=== PATIENT | female | born 1945 | race Hispanic/Latino ===

== ENCOUNTER 2018-05-01 16:08 | Observation (INO) | payer MEDICARE, OTHER ==
[2018-05-01 17:42] LABS: #Basophils 0.1 thou/uL (0.0-0.2); #Eosinphils 0.2 thou/uL (0.0-0.7); #Lymphocytes 2.6 thou/uL (1.20-3.40); #Monocytes 0.7 thou/uL (0.11-0.59); #Neutrophils 7.7 thou/uL (1.40-6.50); %Basophils 0.7 % (0.0-1.0); %Eosinophils 1.4 % (0.0-10.0); %Lymphocytes 22.9 % (21.0-51.0); %Monocytes 6.3 % (0.0-10.0); %Neutrophils 68.7 % (42.0-75.0); Hemoglobin 8.1 g/dL (12.0-16.0); Mean Corpuscular HGB CONC 34.8 g/dL (32.0-36.0); Mean Corpuscular Hemoglobin 32.9 pg (27.0-31.0); Mean Corpuscular Volume 94.5 fL (78.0-98.0); Mean Platelet Volume 8.4 fL (7.4-10.4); Platelet Count 252 thou/uL (130-400); Red Blood Cell (RBC) Count 2.45 mill/uL (4.20-5.40); White Blood Cell (WBC) Count 11.3 thou/uL (4.8-10.8)
[2018-05-01 17:58] LABS: ALT (SGPT) 31 U/L (8-55); AST (SGOT) 32 U/L (5-34); Albumin 3.8 g/dL (3.4-4.8); Alkaline Phosphatase 69 U/L (40-150); Anion Gap 15 mmol/L (10-20); BUN (Urea Nitrogen) 18 mg/dL (9.8-20.1); Bilirubin, Total 0.4 mg/dL (0.2-1.2); Calc. Creatinine Clearance 0 mL/min (70-130); Calcium 9.1 mg/dL (7.8-10.44); Carbon Dioxide 19 mmol/L (23-31); Chloride 107 mmol/L (98-107); Estimated GFR-MDRD 64; Globulin 2.6 g/dL (2.4-3.5); Glucose 104 mg/dL (83-110); Potassium 4.8 mmol/L (3.5-5.1); Protein, Total 6.4 g/dL (6.0-8.3); Sodium 136 mmol/L (136-145)
[2018-05-01] MEDS ORDERED: Pantoprazole 40 MG VIAL ONE (19:21)
[2018-05-01] MEDS ORDERED: Ondansetron HCl/PF 4 MG/2 ML Vial IVP PRN (22:35)
[2018-05-01] MEDS ORDERED: Acetaminophen 325 MG TAB PO PRN (22:35)
[2018-05-01] MEDS ORDERED: Ondansetron ODT 4 MG TAB SL PRN (22:35)
[2018-05-01] MEDS ORDERED: Pantoprazole 80 MG in Sodium Chloride 0.9% 100 ML IVP SCH (22:45)
--- NOTE | 2018-05-02 00:03 | CT ---
CT ABDOMEN AND PELVIS WITH IV CONTRAST 05/01/18 HISTORY: Abdominal pain. GI bleed. FINDINGS: Lung bases are clear. Gallbladder is surgically absent. Calcification throughout the arterial structu res. Urinary bladder is unremarkable. Degenerative changes lumbar spine. Lack of oral contrast limits evaluation of the bowel. No evidence of obstruction or inflammation. IMPRESSION: No acute abnormalities are demonstrated. Status post cholecystectomy. POS: [facility]
[2018-05-02 00:16] LABS: Hemoglobin 8.6 g/dL (12.0-16.0)
[2018-05-02 01:19] VITALS: BMI 34.5
[2018-05-02 05:00] LABS: Hemoglobin 8.5 g/dL (12.0-16.0)
[2018-05-02 05:25] LABS: Anion Gap 10 mmol/L (10-20); BUN (Urea Nitrogen) 14 mg/dL (9.8-20.1); Calc. Creatinine Clearance 79 mL/min (70-130); Calcium 8.7 mg/dL (7.8-10.44); Carbon Dioxide 26 mmol/L (23-31); Chloride 107 mmol/L (98-107); Estimated GFR-MDRD 64; Glucose 106 mg/dL (83-110); Potassium 3.8 mmol/L (3.5-5.1); Sodium 139 mmol/L (136-145)
[2018-05-02] MEDS ORDERED: Diabetic Tussin 200 MG/10 ML UDCUP PO PRN (07:16)
[2018-05-02] MEDS ORDERED: Senokot 8.6 MG TAB PO PRN (07:16)
[2018-05-02] MEDS ORDERED: hydrALAZINE 20 MG/ML VIAL SLOW IVP PRN (07:16)
[2018-05-02] MEDS ORDERED: Loratadine 10 MG TAB PO PRN (07:16)
[2018-05-02] MEDS ORDERED: HYDROcodone/Acetaminophen 5/325 mg Tablet PO PRN (07:16)
[2018-05-02] MEDS ORDERED: Ondansetron ODT 4 MG TAB PO PRN (07:16)
[2018-05-02] MEDS ORDERED: Sodium Chloride 0.65% Nasal 44 ML BOT EA NARE PRN (07:16)
[2018-05-02] MEDS ORDERED: Milk Of Magnesia 30 ML UDCUP PO PRN (07:16)
[2018-05-02] MEDS ORDERED: Artificial Tears 18 DROP/0.9 ML EA EYE PRN (07:16)
[2018-05-02] MEDS ORDERED: Chloraseptic Spray 180 ml Bottle PO PRN (07:16)
[2018-05-02] MEDS ORDERED: Mag-Al 1200 mg/1200 mg/30 ML UDCUP PO PRN (07:16)
[2018-05-02] MEDS ORDERED: Loperamide HCl 2 MG CAP PO PRN (07:16)
[2018-05-02] MEDS ORDERED: Eucerin (Mineral Oil/Petrolatum,White) 30 gm Jar TOP PRN (07:16)
[2018-05-02] MEDS ORDERED: Zolpidem Tartrate 5 MG TAB PO PRN (07:16)
[2018-05-02] MEDS ORDERED: Dextrose 5% in Water 1,000 ML IV PRN (07:17)
[2018-05-02] MEDS ORDERED: HumaLOG 300 UNITS/3 ML VIAL SC PRN ×2 (07:17)
[2018-05-02] MEDS ORDERED: Dextrose 50% Abboject 50 ML SYRINGE SLOW IVP PRN (07:17)
--- NOTE | 2018-05-02 07:19 | HP ---
TIME OF EVALUATION: 8:30 p.m. PRIMARY CARE PHYSICIAN: Dr. Vaishali Huff. CODE STATUS: FULL CODE. CHIEF COMPLAINT: Black stool. HISTORY OF PRESENT ILLNESS: A 72-year-old female patient with past medical history of diabetes type 2, hyperlipidemia, high cholesterol, hypertension who came to the hospital after having worsening mimi rtness of breath for past 2 weeks, and also having black stools in the past few days, she was taking Pepto-Bismol she had the black stool because of the medication, Dr. Huff saw the patient and her hemoglobin was 7.6, while it was positive. The patient has been sent to the hospital for that r se. There are no clear triggers, no alleviating factors, symptoms were reported as moderate. REVIEW OF SYSTEMS: Constitutional: No fever, no chills. The patient reported generalized weakness. Respiratory: The patient reported shortness of breath, no sputum, no cough. Cardiovascular: No c hest pain, palpitation, shortness of breath, palpitations, nausea, vomiting, diarrhea, or abdominal p ain. 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 Genitourinary: No burning with urinatio n. Extremities: No leg swelling. All other systems were reviewed and negative except for the findi ngs mentioned above. PAST MEDICAL HISTORY: As mentioned in the HPI. SOCIAL HISTORY: No alcohol, no drugs. No smoking history. Lives with family. PAST SURGICAL HISTORY: Hysterectomy. PSYCHIATRIC HISTORY: Anxiety, depression. No history of suicidal ideation. ALLERGIES: No known drug allergies. FAMILY HISTORY: Reviewed and noncontributory for current presentation. REPORTED MEDICATIONS: Pravastatin, Tradjenta, losartan, metformin, amlodipine, vitamin D. PHYSICAL EXAMINATION: VITAL SIGNS: On presentation, blood pressure 150/66 with a heart rate 81, respiratory rate 15, tempe rature 98.4, pain was 0/10, oxygen saturation was 100 on room air. GENERAL APPEARANCE: The patient is alert, oriented, not in any acute distress. HEAD AND EYES: Normal conjunctivae. Moist oral mucosa. Eyes anicteric. NECK: No JVD. RESPIRATORY: Bilateral air entry. No rales, no wheezing. Symmetric expansion. CARDIOVASCULAR: Normal rate, regular rhythm. No murmurs, no gallop. No edema. ABDOMEN: Soft, normal bowel sounds. MUSCULOSKELETAL: Baseline range of motion and strength. No tenderness. SKIN: Warm and intact. No pallor, no rash, no redness. Peripheral pulses are present. Capillary r efill seems to be intact. NEUROLOGIC: Baseline sensory. No evidence of any new focal weakness. Baseline speech. Cranial ner ves seems to be intact. PSYCHIATRIC: The patient is in good mood. No anxiety, oriented, optimal judgment. IMAGING DATA: Abdominal pelvis CT was done. The patient had no acute abnormalities. LABORATORY DATA: Reviewed. The patient has white count 11.3, hemoglobin 8.1 repeated one 8.6. Chem istry was totally normal. Carbon dioxide was 19. ASSESSMENT AND PLAN: The patient will be placed in the hospital with the following medical problems. 1. Gastrointestinal bleeding, likely upper gastrointestinal bleeding, the patient has been started o n Protonix, monitor hemoglobin, transfuse as needed, the patient getting blood transfusion from the E R due to symptomatic anemia. We will follow GI recommendations. 2. Diabetes type 2, is controlled, reconcile home meds, sliding scale for edema control. 3. Hyperlipidemia, low-cholesterol diet is advised. 4. Uncontrolled hypertension on presentation with systolic blood pressure of 58, reconciled home med ications. We will adjust treatment as needed. 5. Deep venous thrombosis prophylaxis.
[2018-05-02] MEDS ORDERED: Prevnar 13-Val Conj/PF 0.5 ML SYRINGE IM ONE (09:00)
[2018-05-02] MEDS ORDERED: Non-Formulary Item 1 EACH (Metformin Hcl [Metformin Hcl] 1,000 MG) PO SCH (09:00)
--- NOTE | 2018-05-02 10:19 | PDOC.PN ---
- Subjective Encounter Start Date: 05/02/18 Encounter Start Time: 07:20 -: old records requested/rev Patient seen and examined. No new complaints. No overnight events - Objective Resuscitation Status: Resuscitation Status FULL:Full Resuscitation MAR Reviewed: Yes Vital Signs & Weight: Vital Signs (12 hours) Temp Pulse Resp BP BP Pulse Ox 05/02/18 07:16 98.1 F 77 20 120/58 L 98 05/02/18 04:00 98.1 F 74 18 133/60 96 05/01/18 23:13 98.1 F 81 14 05/01/18 22:24 98.1 F 81 14 158/76 H 99 Weight Weight 188 lb 12.8 oz I&O: 05/01/18 05/02/18 05/03/18 06:59 06:59 06:59 Intake Total 0 Balance 0 Result Diagrams: 05/02/18 04:33 05/02/18 04:33 Additional Labs: Accuchecks 05/02/18 05:54 POC Glucose 116 H Radiology Reviewed by me: Yes Phys Exam - Physical Examination Constitutional: NAD HEENT: PERRLA, moist MMs, sclera anicteric Neck: no JVD, supple Respiratory: no wheezing, no rales, no rhonchi Cardiovascular: RRR, no significant murmur, no rub Gastrointestinal: soft, non-tender, no distention, positive bowel sounds Musculoskeletal: no edema, pulses present Neurological: non-focal, normal sensation, moves all 4 limbs Psychiatric: normal affect, A&O x 3 Skin: no rash, normal turgor Dx/Plan (1) Epigastric abdominal pain Code(s): R10.13 - EPIGASTRIC PAIN Status: Acute (2) Anemia Code(s): D64.9 - ANEMIA, UNSPECIFIED Status: Acute (3) Obesity (BMI 30.0-34.9) Code(s): E66.9 - OBESITY, UNSPECIFIED Status: Chronic (4) H. pylori infection Code(s): A04.8 - OTHER SPECIFIED BACTERIAL INTESTINAL INFECTIONS Status: Chronic (5) Hypertension Code(s): I10 - ESSENTIAL (PRIMARY) HYPERTENSION Status: Chronic (6) Dyslipidemia Code(s): E78.5 - HYPERLIPIDEMIA, UNSPECIFIED Status: Chronic (7) Diabetes type 2, controlled Code(s): E11.9 - TYPE 2 DIABETES MELLITUS WITHOUT COMPLICATIONS Status: Chronic - Plan cont current plan of care * Gi consulted * continue protonix * repeat labs tomorrow. * will discharge tomorrow if no plan for procedure Review of Systems - Review of Systems Eyes: negative: Pain, Vision Change, Conjunctivae Inflammation, Eyelid Inflammation, Redness, Other ENT: negative: Ear Pain, Ear Discharge, Nose Pain, Nose Discharge, Nose Congestion, Mouth Pain, Mouth Swelling, Throat Pain, Throat Swelling, Other Respiratory: negative: Cough, Dry, Shortness of Breath, Hemoptysis, SOB with Excertion, Pleuritic Pain, Sputum, Wheezing Cardiovascular: negative: chest pain, palpitations, orthopnea, paroxysmal nocturnal dyspnea, edema, light headedness, other Gastrointestinal: Abdominal Pain. negative: Nausea, Vomiting, Diarrhea, Constipation, Melena, Hematochezia, Other Genitourinary: negative: Dysuria, Frequency, Incontinence, Hematuria, Retention , Other Musculoskeletal: negative: Neck Pain, Shoulder Pain, Arm Pain, Back Pain, Hand Pain, Leg Pain, Foot Pain, Other Skin: negative: Rash, Lesions, Tenzin, Bruising, Other - Medications/Allergies Allergies/Adverse Reactions: Allergies Allergy/AdvReac Type Severity Reaction Status Date / Time aspirin AdvReac Intermediate Nausea Verified 05/01/18 22:57 Medications: Current Medications Acetaminophen (Tylenol) 650 mg PO Q4H PRN PRN Reason: Headache/Fever or Pain Stop: 05/05/18 08:00 Hydrocodone Bitart/Acetaminophen ([place] 5/325) 1 tab PO Q4H PRN PRN Reason: Moderate Pain (4-6) Al Hydroxide/Mg Hydroxide (Maalox) 15 ml PO Q4H PRN PRN Reason: Heartburn or Indigestion Amlodipine Besylate (Norvasc) 5 mg PO DAILY ON LICENSE OF [facility] Artificial Tears (Tears Naturale) 0 drop EA EYE PRN PRN PRN Reason: Dry Eyes Atorvastatin Calcium (Lipitor) 20 mg PO HS ON LICENSE OF [facility] Cholecalciferol (Vitamin D3) 1,000 units PO DAILY ON LICENSE OF [facility] Dextrose/Water (Dextrose 50%) 25 gm SLOW IVP PRN PRN PRN Reason: Hypoglycemia Glucagon (Glucagon) 1 mg IM PRN PRN PRN Reason: Hypoglycemia Guaifenesin (Robitussin Sf) 200 mg PO Q4H PRN PRN Reason: Cough Hydralazine HCl (Apresoline) 10 mg SLOW IVP Q4H PRN PRN Reason: Systolic BP > 180 Pantoprazole Sodium 80 mg/ (Sodium Chloride) 100 mls @ 10 mls/hr IVP INF ASHLIE Stop: 05/03/18 08:00 Dextrose/Water (D5w) 1,000 mls @ 0 mls/hr IV .Q0M PRN PRN Reason: Hypoglycemia Insulin Human Lispro (Humalog) 0 units SC .MODERATE SLIDING SC PRN PRN Reason: Moderate Correctional Scale Insulin Human Lispro (Humalog) 0 units SC .BEDTIME SLIDING SC PRN PRN Reason: Bedtime Correctional Scale Loperamide HCl (Imodium) 2 mg PO PRN PRN PRN Reason: Diarrhea/Loose Stools Loratadine (Claritin) 10 mg PO DAILYPRN PRN PRN Reason: Sinus Symptoms Losartan Potassium (Cozaar) 100 mg PO DAILY ASHLIE Magnesium Hydroxide (Milk Of Magnesium) 30 ml PO DAILYPRN PRN PRN Reason: Constipation Metformin HCl (Glucophage) 1,000 mg PO BID-WM ASHLIE Mineral Oil/White Petrolatum (Eucerin Cream) 0 gm TOP BIDPRN PRN PRN Reason: Dry Skin Ondansetron HCl (Zofran) 4 mg IVP Q6H PRN PRN Reason: Nausea/Vomiting Stop: 05/05/18 08:00 Ondansetron HCl (Zofran Odt) 4 mg PO Q6H PRN PRN Reason: Nausea/Vomiting Phenol (Chloraseptic [place] 180 Ml Bot) 0 ml PO PRN PRN PRN Reason: Sore Throat Senna (Senokot) 2 tab PO HSPRN PRN PRN Reason: Constipation Sodium Chloride (Peach Nasal [place] 0.65%) 0 ml EA NARE QIDPRN PRN PRN Reason: Nasal Congestion Sodium Chloride (Flush - Normal Saline) 10 ml IVF Q12HR ASHLIE Sodium Chloride (Flush - Normal Saline) 10 ml IVF PRN PRN PRN Reason: Saline Flush Zolpidem Tartrate (Ambien) 5 mg PO HSPRN PRN PRN Reason: Insomnia
[2018-05-02] MEDS: Amlodipine 5 MG TAB PO SCH (10:46)
[2018-05-02] MEDS: Losartan 25 MG TAB PO SCH (10:46)
[2018-05-02] MEDS: metFORMIN 500 MG TAB PO SCH ×2 (10:46→17:26)
[2018-05-02] MEDS ORDERED: PROPOFOL 200 MG/20 ML VIAL ONE (11:12)
[2018-05-02] MEDS ORDERED: Lidocaine 1% PF 5 ML VIAL ONE (11:12)
[2018-05-02 12:05] LABS: Hemoglobin 9.3 g/dL (12.0-16.0)
[2018-05-02 12:24] LABS: Iron 41 ug/dL (50-170); Iron Binding Capacity, Total 250 mcg/dL (265-497)
[2018-05-02 12:43] LABS: Ferritin 39.39 ng/mL (10-291); Thyroid Stimulating Hormone 3.1882 uIU/mL (0.35-4.94)
[2018-05-02 12:57] LABS: Folate (Folic Acid) 10.6 ng/mL (7.0-31.4)
[2018-05-02] MEDS ORDERED: Ondansetron HCl/PF 4 MG/2 ML Vial IVP PRN (14:20)
--- NOTE | 2018-05-02 15:25 | OP ---
DATE OF PROCEDURE: 05/02/2018 PROCEDURE: Esophagogastroduodenoscopy with control of hemorrhage and biopsy. PREOPERATIVE DIAGNOSES: Gastrointestinal bleed, anemia, melena, history of Helicobacter pylori. OPERATIVE NOTE: Informed consent was obtained from the patient. She was sedated with total intraven ous anesthesia. The endoscope was advanced easily to the second portion of the duodenum and retrofle xion was performed in the stomach. The esophagus was normal. The GE junction was normal. The stoma ch had several 4-mm erosions in the antrum and one 7-mm ulcer. The base of this ulcer did have a fla t red vessel, which was cauterized with a 10-[place] gold probe. The pylorus and first and second por tions of the duodenum were normal. Retroflexed views in the stomach were normal. IMPRESSION: 1. A 7-mm ulcer in the antrum of the stomach with a small red vessel in the base. This was cauteriz ed with a 10-[place] gold probe with good hemostasis confirmed. 2. Erosive antral gastritis. Biopsies were taken to rule out persistent Helicobacter pylori from th e antrum and body. 3. Otherwise, normal esophagogastroduodenoscopy. RECOMMENDATIONS: 1. Proton pump inhibitor twice daily. 2. Await histopathology. 3. Verify that she is not taking NSAIDs. 4. Advance diet. 5. She can be discharged home tomorrow if her hemoglobin is stable.
--- NOTE | 2018-05-02 15:37 | CON ---
DATE OF CONSULTATION: 05/02/2018 CHIEF COMPLAINT: Weakness. HISTORY OF PRESENT ILLNESS: Ms. Boswell is a 72-year-old woman, who has had weakness with some shortnes s of breath on exertion over the last week or so. She saw her primary care physician and was found t o have anemia with hemoglobin of 7.7. She also reported black stools and she was admitted for [facility] care. She had taken Pepto-Bismol a few days before for some epigastric aching discomfort and bloat ing. Her stools were black following that. She has had this same epigastric bloating and discomfort on and off for the last several months. She had EGD and colonoscopy performed by Dr. Cole in January. EGD showed erosive gastritis and biopsies were positive for H. pylori. She was treated for the H. py rahul with quadruple therapy. Follow up stool H. pylori antigen was positive and she then took [facility] course of quadruple therapy in February. She has had no weight loss or diarrhea or constipation. She typically has normal brown stool daily. Her colonoscopy was negative except for a small adenoma bhupendra ian and she was advised repeat colonoscopy in 5 years. She has no chest pain or shortness of breath now. PAST MEDICAL HISTORY: Erosive gastritis and H. pylori recently treated, hypertension, hyperlipidemia , diabetes mellitus type 2. PAST SURGICAL HISTORY: Hysterectomy and upper and lower endoscopy. FAMILY HISTORY: Negative for GI malignancies. SOCIAL HISTORY: No alcohol, tobacco or drugs. ALLERGIES: No known drug allergies. MEDICATIONS: Prior to admission include pravastatin, losartan, vitamin D, amlodipine, metformin, and Tradjenta. REVIEW OF SYSTEMS: Negative x10 systems reviewed except as stated in history of present illness. PHYSICAL EXAMINATION: VITAL SIGNS: Temperature 97.6, pulse 78, and blood pressure 144/65. GENERAL: She is in no acute distress, alert and oriented x3. HEENT: Eyes have no scleral icterus. Oropharynx is clear, without lesions. NECK: No cervical or supraclavicular lymphadenopathy. LUNGS: Clear to auscultation bilaterally. HEART: Regular rate and rhythm without murmur. ABDOMEN: Soft, nontender, nondistended. Bowel sounds are present. EXTREMITIES: No lower extremity edema. LABORATORY DATA: Creatinine 0.87, bilirubin 0.4, AST 32, ALT 31, alkaline phosphatase 69. Iron 41, TIBC 250, ferritin 39, albumin 3.8, hemoglobin was 7.7 on presentation yesterday. Hemoglobin after 1 unit transfusion is 9.3 today. White blood cell count 11.3, MCV 94, platelets 252. IMPRESSION: 1. Dyspepsia and erosive gastritis in January with positive H. pylori. She presents with new anemia com pared to a year ago and black stools. I do not think she is having an acute gastrointestinal bleed g iven the use of Pepto-Bismol immediately before the black stool; however, given the erosive gastritis and recent H. pylori would be reasonable to follow up endoscopy at this time and light of the ongoin g symptoms to reassess for ulcer or bleeding source and also rebiopsy for the Helicobacter pylori. 2. Anemia. I suspect this is more of a chronic anemia as her last hemoglobin was a year ago. Her i pau studies are more indicative of anemia of chronic disease; however, given the lower normal ferriti n, iron deficiency still might be playing a role. I will check a B12 and folate as well. RECOMMENDATIONS: 1. Esophagogastroduodenoscopy today. 2. Proton pump inhibitor. 3. Of note, she does have a normal vitamin B12 and folate levels. We will follow through with endos copy today.
[2018-05-02] MEDS ORDERED: Atorvastatin Calcium 20 MG TAB PO SCH (21:00)
[2018-05-03 05:48] LABS: #Basophils 0.1 thou/uL (0.0-0.2); #Eosinphils 0.2 thou/uL (0.0-0.7); #Lymphocytes 1.3 thou/uL (1.20-3.40); #Monocytes 0.6 thou/uL (0.11-0.59); #Neutrophils 5.1 thou/uL (1.40-6.50); %Basophils 0.7 % (0.0-1.0); %Eosinophils 2.6 % (0.0-10.0); %Lymphocytes 18.4 % (21.0-51.0); %Monocytes 8.2 % (0.0-10.0); %Neutrophils 70.2 % (42.0-75.0); Hemoglobin 8.2 g/dL (12.0-16.0); Mean Corpuscular HGB CONC 35.1 g/dL (32.0-36.0); Mean Corpuscular Volume 94.1 fL (78.0-98.0); Mean Platelet Volume 8.1 fL (7.4-10.4); Platelet Count 235 thou/uL (130-400); RBC Distribution Width 13.8 % (11.5-14.5); Red Blood Cell (RBC) Count 2.49 mill/uL (4.20-5.40); White Blood Cell (WBC) Count 7.3 thou/uL (4.8-10.8)
[2018-05-03] MEDS: metFORMIN 500 MG TAB PO SCH (08:42)
[2018-05-03] MEDS: Amlodipine 5 MG TAB PO SCH (08:42)
[2018-05-03] MEDS: Losartan 25 MG TAB PO SCH (08:42)
--- NOTE | 2018-05-03 10:52 | DIS ---
DATE OF ADMISSION: 05/01/2018 DATE OF DISCHARGE: 05/03/2018 PRIMARY CARE PHYSICIAN: Dr. Vaishali Huff. DISCHARGE DISPOSITION: Home. PRIMARY DISCHARGE DIAGNOSES: 1. Acute erosive antral gastritis. 2. Antral ulcer, status post cauterization for visible blood vessel. 3. Anemia presumed from acute blood loss. 5. Epigastric abdominal pain due to problem #1 and #2. SECONDARY DISCHARGE DIAGNOSES: Obesity with BMI 34, hypertension, history of H. pylori infection, dy slipidemia, diabetes type 2. PRIMARY PROCEDURES AND OPERATIONS: Upper endoscopy was performed by Dr. Tang and found with antral ulcer and antral erosive gastritis. RADIOLOGICAL INVESTIGATION: Abdomen and pelvis CT scan was normal. SIGNIFICANT LABORATORY DATA: WBC 7.3, hemoglobin 8.2, platelet 235. Sodium 139, potassium 3.8, BUN 14, creatinine 0.87, ferritin 39.39. LFT normal. TSH 3.18. Stool for guaiac negative. DISCHARGE MEDICATIONS: Protonix 40 mg p.o. b.i.d., pravastatin 80 mg p.o. at bedtime, metformin 1000 mg p.o. b.i.d., losartan 100 mg p.o. daily, Tradjenta 5 mg p.o. daily, vitamin D3 1000 units p.o. da mateusz, Norvasc 5 mg p.o. daily. CONTRAINDICATIONS: None. CODE STATUS: FULL CODE. INPATIENT CONSULTANTS: Dr. Tang was consulted while in hospital. TEST RESULTS PENDING ON DISCHARGE: Pathology report from stomach. DISCHARGE PLAN: Post hospital, the patient is instructed to follow up with primary care physician mckenzie Tang for followup on pathology report. HOSPITAL COURSE: A 72-year-old female who presented to the hospital with the complaint of generalize d weakness. She was having black tarry stool. Surprisingly, her stool was negative for guaiac, but she was taking Pepto-Bismol. She went to see primary care physician who advised her to go to ER for admission, her hemoglobin was 7.6. During this admission, we suspected her GI bleed because her prev ious hemoglobin was 13.4 and on admission, her hemoglobin was 7.7. Patient required a GI consultatio n. She required upper endoscopy and found with antral ulcer as well as antral erosive gastritis. Th is patient does have previous history of H. pylori infection and that is why pathology report was don e while in hospital, but result is pending. This patient is strongly advised to follow up with gastr oenterologist for followup on pathology report to decide with her H. pylori treatment again indicated or not. We prescribed Protonix 40 mg p.o. b.i.d. Her hemoglobin remained in that range that she di d not require any blood transfusion while in hospital. Currently, the patient is asymptomatic. We a dvised her to avoid NSAIDs. The patient is seen and examined at bedside today. Plan of care discussed with the family member. PHYSICAL EXAMINATION: VITAL SIGNS: Currently, temperature 98.3, pulse 77, respiratory rate 16, saturation 97% on room air, blood pressure 135/62. GENERAL: The patient is currently alert, awake, no obvious acute distress. HEAD: Normocephalic, atraumatic. EYES: Pupils round, reactive to light. Extraocular muscle intact. ENT: Oropharynx within normal limits. LUNGS: Clear to auscultation without any rhonchi or rales. CARDIAC: S1, S2 regular without any murmur. ABDOMEN: Soft and benign without any tenderness. EXTREMITIES: No edema. NEUROLOGIC: Nonfocal examination. The patient is medically stable for discharge today.
[2018-05-03 11:31] VITALS: BP 121/58; TEMP 98.1
--- NOTE | 2018-05-03 15:47 | PRG ---
DATE OF SERVICE: 05/03/2018 SUBJECTIVE: Ms. Boswell had a brown bowel movement following the endoscopy yesterday. She has had no a bdominal pain or complaints today. She is tolerating diet well. OBJECTIVE: VITAL SIGNS: Temperature 98.1, pulse 87, blood pressure 121/58. GENERAL: She is in no acute distress, awake and alert. LUNGS: Clear to auscultation bilaterally. HEART: Regular rate and rhythm. ABDOMEN: Soft, nontender, nondistended. Bowel sounds are present. LABORATORY DATA: Her hemoglobin is 8.2. IMPRESSION: Antral ulcer. She has been treated twice for Helicobacter pylori over the last couple o f months. I took biopsies yesterday to rule out persistent Helicobacter pylori. She does not use si gnificant non-steroidal anti-inflammatory drugs. She has not been taking the proton pump inhibitor s ang she completed the last Helicobacter pylori treatment about 3 weeks ago. RECOMMENDATIONS: 1. Continue proton pump inhibitor daily. 2. Follow up in GI clinic with Dr. Cole in a week to recheck her hemoglobin.
== END 2018-05-03 11:47 | disposition home or self-care (01) ==
LOC: ERS 16:08 → ERHOLD 21:18 → 2SW 22:31
PROVIDERS: ADMIT Hospitalist; ATTEND Hospitalist
PROC: 0DB78ZX Excision of Stomach, Pylorus, Via Natural or Artificial Opening Endoscopic, Diagnostic (ICD-10-PCS; principal; 2018-05-02)
PROC: 0D568ZZ Destruction of Stomach, Via Natural or Artificial Opening Endoscopic (ICD-10-PCS; 2018-05-02)
DX: K62.5 Hemorrhage of anus and rectum (principal); K31.9 Disease of stomach and duodenum, unspecified; D64.9 Anemia, unspecified; K25.9 Gastric ulcer, unspecified as acute or chronic, without hemorrhage or perforation; K29.60 Other gastritis without bleeding; E11.9 Type 2 diabetes mellitus without complications; E78.5 Hyperlipidemia, unspecified; E78.00 Pure hypercholesterolemia, unspecified; I10 Essential (primary) hypertension; E66.9 Obesity, unspecified; Z68.34 Body mass index [BMI] 34.0-34.9, adult; Z79.84 Long term (current) use of oral hypoglycemic drugs; Z88.8 Allergy status to other drugs, medicaments and biological substances
CPT/HCPCS: 36415; 36416; 36430; 74177; 80048; 82274; 82607; 82728; 82746; 83540; 83550; 83880; 84443; 85025; 86850; 86900; 86901; 88305; 88312; 88342; 90471; 90670; 94760; 96365; 96366; 96374; 96376; A4216; C9113; G0009; G0378; J2001; J2704; J7050; P9016

== ENCOUNTER 2018-05-19 12:39 | Inpatient (IN) | payer MEDICARE, OTHER ==
--- NOTE | 2018-05-19 15:45 | HP ---
PRIMARY CARE PHYSICIAN: Dr. Vaishali Huff. REASON FOR ADMISSION: Transfer from [facility] for atrial fibrillation with rapid ventr icular response. HISTORY OF PRESENT ILLNESS: This is a 72-year-old female, who has underlying history of hypertension , well-controlled with antihypertensive medication as well as diabetes, type 2, on oral diabetes medi cation, who has a history of H. pylori gastritis, diagnosed in 01/2018, after that patient has [facility] H. pylori treatment, who was recently admitted in our hospital under observation status. At that time, the patient was found with symptomatic anemia. The patient was sent by primary care physician for her routine hemoglobin which normally runs in 13-14 range, but at that time, her hemoglobin was 7.7 and that is why she was sent to hospital. The patient was complaining of epigastric abdominal pa in and that is why goring cutter did upper endoscopy on 05/02/2018 and patient was found with a 7-mm ulcer in the antrum of the stomach with visible vessel, which was cauterized. This time, H. pyl satnam pathology report came back negative. Patient was discharged home on Protonix 40 mg twice daily. After discharge, the patient was feeling a little bit of weakness and palpitations intermittently an d dizziness, which she was attributing to be due to blood loss. During that admission, patient did n ot have any episode of atrial fibrillation and she did not have any gross bleeding. She did not requ matt any blood transfusion during that admission. After discharge from the hospital, the patient made appointment with Dr. Cole, which she saw last . After discharge, the patient was experiencing a patchy itching, different location in her body, a nd that is why she was suspecting some allergic reaction and that is why Dr. Cole changed her Protoni x to different proton pump inhibitor, which she is not able to recognize the name. Even after changi ng the Protonix to a different proton pump inhibitor, the patient continued to have itching in differ ent location and that is why today she went to see her primary care physician. During this period, t he patient was intermittently feeling palpitation, dizziness, fatigue, which she was attributing to b e due to blood loss. When patient was evaluated by primary care physician today, at that point, the patient was found with a fast heart rate and she was diagnosed with atrial fibrillation and that is w hy she was advised to go to [facility]. The patient was having fibrillation with RVR. She was started on Cardizem drip and patient was transferred to our emergency room for evaluation. Wilfrid vizcarra I saw this patient, at that time the patient was still in atrial fibrillation and very variable r ate. She already received Lovenox 1 mg per kg subcu at [facility] and Plavix 75 mg. Th e patient was given Cardizem 20 mg bolus. Patient denies any black tarry stool. She denies any thyroid disorder. She denies any previous hist ory of strokes and denies any previous history of diagnosed atrial fibrillation or heart-related cond ition. PAST MEDICAL HISTORY: Mild intermittent asthma; dyslipidemia; diabetes, type 2; hypertension; H. pyl satnam gastritis; peptic ulcer disease; obesity; recent admission for anemia due to blood loss from pres umed GI bleed. PAST SURGICAL HISTORY: EGD and colonoscopy with polypectomy. Repeat EGD showed antral ulcer, requir ed cauterization. Hysterectomy. PAST PSYCHIATRIC HISTORY: Anxiety and depression, not on any specific treatment. SOCIAL HISTORY: The patient lives at home with family. No history of tobacco, alcohol, or illicit d rug abuse. FAMILY HISTORY: No strong family history of premature coronary artery disease, stroke, or cancer. ALLERGIES: No known drug allergy. CURRENT HOME MEDICATIONS: Multivitamin 1 tablet p.o. daily, Flonase nasal spray daily, metformin 100 0 mg twice daily, pravastatin 80 mg p.o. at bedtime, losartan 100 mg p.o. daily, amlodipine 5 mg p.o. daily, albuterol inhalation as needed basis, Tradjenta 5 mg p.o. daily, Dexilant 60 mg p.o. daily, i pau 1 tablet p.o. daily. EMERGENCY ROOM COURSE: Patient was given Lovenox 1 mg per kg, Cardizem bolus, and then Cardizem drip , and Plavix 75 mg. REVIEW OF SYSTEMS: The following complete review of systems was negative, unless otherwise mentioned in the HPI or below: Constitutional: Weight loss or gain, ability to conduct usual activities. Sk in: Rash, itching. Eyes: Double vision, pain. ENT/Mouth: Nose bleeding, neck stiffness, pain, te nderness. Cardiovascular: Palpitations, dyspnea on exertion, orthopnea. Respiratory: Shortness of breath, wheezing, cough, hemoptysis, fever, or night sweats. Gastrointestinal: Poor appetite, abdo anna pain, heartburn, nausea, vomiting, constipation, or diarrhea. Genitourinary: Urgency, frequen cy, dysuria, nocturia. Musculoskeletal: Pain, swelling. Neurologic/Psychiatric: Anxiety, depressi on. Allergy/Immunologic: Skin rash, bleeding tendency. Please see my HPI for pertinent positive an d negative. All other review of systems reviewed and negative except as mentioned in the HPI. PHYSICAL EXAMINATION: VITAL SIGNS: Currently, blood pressure 110/80, pulse variable from 110-130 and irregular, respirator y rate 18, temperature 98.2, saturation 95% on room air, weight 84 kilograms. GENERAL: Patient is currently alert, awake, in no obvious acute distress. HEENT: Head: Normocephalic, atraumatic. Eyes: Pupils round and reactive to light. Extraocular mu scle intact. ENT: Oropharynx within normal limits. Moist mucous membranes. No oral lesion, no pha ryngeal erythema, no exudate. NECK: Supple, no JVD, no thyromegaly, no carotid bruit, no jugular venous distention. LUNGS: Clear to auscultation without any rhonchi or rales. CARDIAC: S1 and S2 irregularly irregular. No murmur elicited, no gallop, no rub. ABDOMEN: No epigastric tenderness, no organomegaly, no mass, no suprapubic tenderness. BACK EXAMINATION: Unremarkable, no CVA tenderness. EXTREMITIES: Upper extremities, passive movement of all joints are normal. Lower extremities, no ed cira. Good distal pulsation, no calf tenderness. SKIN: No skin rash. HEMATOLOGICAL SYSTEM: No lymphadenopathy. PSYCHIATRIC: Normal affect. NEUROLOGIC: Nonfocal examination. SIGNIFICANT LABORATORY DATA: CBC: WBC 7.8, hemoglobin 10.1, platelets 390. D-dimer 1.28. Sodium 1 41, potassium 4.4, chloride 107, carbon dioxide 22, anion gap 16, BUN 20, creatinine 1.03, glucose 11 7, calcium 9.9. LFT: AST 24, ALT 27, alkaline phosphatase 79, albumin 4.4, CK-MB 0.7, troponin I le ss than 0.010. BNP 94.3. Chest x-ray, based on my review, no acute cardiopulmonary process. CT ang io, based on my review, no evidence of pulmonary embolism. ASSESSMENT AND PLAN: 1. New onset atrial fibrillation with rapid ventricular response. EKG showing atrial fibrillation w ith rapid ventricular response. The patient does not have any previous history of atrial fibrillatio n. The patient does not have any associated congestive heart failure symptoms. Patient required Car dizem bolus and Cardizem drip is continued from the ER. The patient has already received 1 mg per kg Lovenox at other emergency room. Per patient, she is taking baby aspirin on a daily basis. She is not mentioning any allergy to aspirin. She was given Plavix at other emergency room. Currently, griffin freedman still has atrial fibrillation with rapid ventricular response in our emergency room. At this po int, CT angio is negative for pulmonary embolism. Her BNP is normal and her cardiac enzymes are nega tive. She has a history of hypertension, diabetes, and female sex without any vascular disease. Bas ed on CHADS2 score, she has 2-3 points. She has intermediate risk of developing future stroke. At t he same time, the patient had recently anemia blood loss related and required cauterization of antral ulcer with visible vessel. The patient had this procedure done 2 weeks ago. The patient does not h ave any current evidence of any ongoing bleeding or symptomatic upper peptic ulcer disease. At this point, the patient will be admitted to telemetry floor. We will continue the Cardizem drip. We are hoping that patient will convert to sinus rhythm. Cardiology team will be consulted. At this point, I had lengthy discussion with the patient about advantage and disadvantage of anticoagulation based on her clinical history. We will closely monitor in the hospital for any bleeding, but we will marimar nue with Lovenox 1 mg per kg subcutaneous for stroke prophylaxis. Echocardiography will be obtained. We will check thyroid function test and we will closely monitor on telemetry floor. 2. Diabetes, type 2. Humalog insulin as per sliding scale per protocol. Diabetic diet will be give n. We will hold on metformin therapy, because of CT angiography. Tradjenta, we do not carry in our hospital and that is why the patient has to bring that medication from her home. 3. Hypertension, currently well controlled with Cardizem drip. We will hold amlodipine, because of her Cardizem. We will restart losartan if blood pressure permits. 4. History of Helicobacter pylori gastritis, which is treated in the past with peptic ulcer disease that required cauterization. Currently, we will continue Protonix 40 mg p.o. b.i.d. We will discuss with Gastroenterology about any reservation for long-term anticoagulation with her. 5. Anemia, normocytic-normochromic. We will continue ferrous sulfate 325 mg p.o. daily and will kristie ck ferritin level tomorrow. If her ferritin level is low, then we will consider giving her iron infu krzysztof as well. We will also check stool for occult blood to rule out any bleeding from any site. 6. Obesity. Dietary education given, weight loss education given, healthy lifestyle measures discus sed with the patient. 7. Deep venous thrombosis prophylaxis. The patient is already on Lovenox therapy. 8. Gastrointestinal prophylaxis. Patient is already on Protonix therapy. 9. Code status: The patient is FULL CODE. Disposition plan based on clinical course. We are expecting patient's stay in hospital more than 2 m idnights. Plan of care discussed with the patient and family member at bedside in the emergency room in detail.
[2018-05-19 16:46] LABS: Troponin I 0.015 ng/mL (< 0.028)
[2018-05-19] MEDS ORDERED: Sodium Chloride 0.65% Nasal 44 ML BOT EA NARE PRN (17:15)
[2018-05-19] MEDS ORDERED: Dextrose 5% in Water 1,000 ML IV PRN (17:15)
[2018-05-19] MEDS ORDERED: Dextrose 50% Abboject 50 ML SYRINGE SLOW IVP PRN (17:15)
[2018-05-19] MEDS ORDERED: Chloraseptic Spray 180 ml Bottle PO PRN (17:15)
[2018-05-19] MEDS ORDERED: HumaLOG 300 UNITS/3 ML VIAL SC PRN (17:15)
[2018-05-19] MEDS ORDERED: Zolpidem Tartrate 5 MG TAB PO PRN (17:15)
[2018-05-19] MEDS ORDERED: Diltiazem 125 MG in Sodium Chloride 0.9% 100 ML IVPB SCH (17:15)
[2018-05-19] MEDS ORDERED: HYDROcodone/Acetaminophen 5/325 mg Tablet PO PRN (17:15)
[2018-05-19] MEDS ORDERED: Diabetic Tussin 200 MG/10 ML UDCUP PO PRN (17:15)
[2018-05-19] MEDS ORDERED: Senokot 8.6 MG TAB PO PRN (17:15)
[2018-05-19] MEDS ORDERED: Eucerin (Mineral Oil/Petrolatum,White) 30 gm Jar TOP PRN (17:15)
[2018-05-19] MEDS ORDERED: Acetaminophen 325 MG TAB PO PRN (17:15)
[2018-05-19] MEDS ORDERED: Artificial Tears 18 DROP/0.9 ML EA EYE PRN (17:15)
[2018-05-19] MEDS ORDERED: Ondansetron ODT 4 MG TAB PO PRN (17:15)
[2018-05-19] MEDS ORDERED: Mag-Al 1200 mg/1200 mg/30 ML UDCUP PO PRN (17:15)
[2018-05-19] MEDS ORDERED: Ondansetron HCl/PF 4 MG/2 ML Vial IVP PRN (17:15)
[2018-05-19] MEDS ORDERED: Loperamide HCl 2 MG CAP PO PRN (17:15)
[2018-05-19] MEDS ORDERED: Loratadine 10 MG TAB PO PRN (17:15)
[2018-05-19] MEDS ORDERED: Labetalol HCl 100 MG/20 ML VIAL SLOW IVP PRN (17:15)
[2018-05-19] MEDS ORDERED: Milk Of Magnesia 30 ML UDCUP PO PRN (17:15)
[2018-05-19 18:05] VITALS: BMI 34.2
[2018-05-19 18:40] LABS: CKMB 0.7 ng/mL (0-6.6); Troponin I Less than 0.010 ng/mL (< 0.028)
[2018-05-19] MEDS: Enoxaparin Sodium 80 MG/0.8 ML SYRINGE SC SCH (19:46)
[2018-05-19] MEDS: Atorvastatin Calcium 20 MG TAB PO SCH (19:46)
[2018-05-19 21:18] LABS: CKMB 0.7 ng/mL (0-6.6); Troponin I Less than 0.010 ng/mL (< 0.028)
[2018-05-20 05:52] LABS: #Basophils 0.1 thou/uL (0.0-0.2); #Eosinphils 0.2 thou/uL (0.0-0.7); #Monocytes 0.6 thou/uL (0.11-0.59); #Neutrophils 4.5 thou/uL (1.40-6.50); %Basophils 0.7 % (0.0-1.0); %Eosinophils 3.2 % (0.0-10.0); %Lymphocytes 26.5 % (21.0-51.0); %Monocytes 8.5 % (0.0-10.0); %Neutrophils 61.2 % (42.0-75.0); Hemoglobin 9.8 g/dL (12.0-16.0); Mean Corpuscular HGB CONC 32.9 g/dL (32.0-36.0); Mean Corpuscular Hemoglobin 29.7 pg (27.0-31.0); Mean Corpuscular Volume 90.4 fL (78.0-98.0); Mean Platelet Volume 8.6 fL (7.4-10.4); Platelet Count 393 thou/uL (130-400); RBC Distribution Width 13.9 % (11.5-14.5); Red Blood Cell (RBC) Count 3.31 mill/uL (4.20-5.40); White Blood Cell (WBC) Count 7.4 thou/uL (4.8-10.8)
[2018-05-20 06:21] LABS: Thyroid Stimulating Hormone 3.7525 uIU/mL (0.35-4.94)
[2018-05-20 06:38] LABS: Anion Gap 12 mmol/L (10-20); BUN (Urea Nitrogen) 15 mg/dL (9.8-20.1); Calc. Creatinine Clearance 70 mL/min (70-130); Calcium 9.5 mg/dL (7.8-10.44); Carbon Dioxide 24 mmol/L (23-31); Chloride 107 mmol/L (98-107); Estimated GFR-MDRD 56; Glucose 109 mg/dL (83-110); Sodium 139 mmol/L (136-145)
[2018-05-20 06:54] LABS: Ferritin 10.62 ng/mL (10-291)
[2018-05-20] MEDS ORDERED: Iron Sucrose Complex 200 MG in Sodium Chloride 0.9% 250 ML 250 ML IVPB SCH (07:00)
[2018-05-20] MEDS ORDERED: Sodium Ferric Gluconate 250 MG in Sodium Chloride 0.9% 250 ML 250 ML IVPB SCH (07:15)
[2018-05-20] MEDS ORDERED: Diltiazem HCl SR 60 mg Capsule PO SCH (09:00)
[2018-05-20] MEDS: Ferrous Sulfate 325 MG TAB PO SCH (09:09)
[2018-05-20] MEDS: Enoxaparin Sodium 80 MG/0.8 ML SYRINGE SC SCH ×2 (09:32→20:53)
--- NOTE | 2018-05-20 10:48 | PDOC.PN ---
- Subjective Encounter Start Date: 05/20/18 Encounter Start Time: 07:20 -: old records requested/rev Patient seen and examined. No new complaints. No overnight events - Objective Resuscitation Status: Resuscitation Status FULL:Full Resuscitation MAR Reviewed: Yes Vital Signs & Weight: Vital Signs (12 hours) Temp Pulse Resp BP Pulse Ox 05/20/18 08:00 97.9 F 85 12 117/52 L 97 05/20/18 04:55 114/57 L 05/20/18 03:10 98.0 F 88 13 128/89 96 05/20/18 00:00 98.4 F 98 14 138/78 93 L Weight Weight 187 lb 1.6 oz I&O: 05/19/18 05/20/18 05/21/18 06:59 06:59 06:59 Intake Total 90 Balance 90 Result Diagrams: 05/20/18 04:45 05/20/18 04:45 Additional Labs: Accuchecks 05/20/18 05/19/18 05/19/18 05:38 21:22 17:23 POC Glucose 115 H 214 H 110 EKG Reviewed by me: Yes (afib) Phys Exam - Physical Examination Constitutional: NAD HEENT: PERRLA, moist MMs, sclera anicteric Neck: no JVD, supple Respiratory: no wheezing, no rales, no rhonchi Cardiovascular: no significant murmur, irregular Gastrointestinal: soft, non-tender, no distention, positive bowel sounds Musculoskeletal: no edema, pulses present Neurological: non-focal, normal sensation, moves all 4 limbs Lymphatic: no nodes Psychiatric: normal affect, A&O x 3 Skin: no rash, normal turgor Dx/Plan (1) Atrial fibrillation with rapid ventricular response Code(s): I48.91 - UNSPECIFIED ATRIAL FIBRILLATION Status: Acute (2) Anemia, normocytic normochromic Code(s): D64.9 - ANEMIA, UNSPECIFIED Status: Chronic (3) Diabetes type 2, controlled Code(s): E11.9 - TYPE 2 DIABETES MELLITUS WITHOUT COMPLICATIONS Status: Chronic (4) Dyslipidemia Code(s): E78.5 - HYPERLIPIDEMIA, UNSPECIFIED Status: Chronic (5) Hypertension Code(s): I10 - ESSENTIAL (PRIMARY) HYPERTENSION Status: Chronic (6) Obesity (BMI 30.0-34.9) Code(s): E66.9 - OBESITY, UNSPECIFIED Status: Chronic (7) PUD (peptic ulcer disease) Code(s): K27.9 - PEPTIC ULC, SITE UNSP, UNSP AC OR CHR, W/O HEMOR OR PERF Status: Chronic - Plan cont current plan of care, plan discussed w/ family * continue cardizem drip * echo pending * cardiology consulted * on lovenox, has high chads2 score * guiac is negative * will give iron infusion * discussed with family * further treatment plan will defer to cardiology * medication reviewed as below * symptomatic treatment. Review of Systems - Review of Systems Eyes: negative: Pain, Vision Change, Conjunctivae Inflammation, Eyelid Inflammation, Redness, Other ENT: negative: Ear Pain, Ear Discharge, Nose Pain, Nose Discharge, Nose Congestion, Mouth Pain, Mouth Swelling, Throat Pain, Throat Swelling, Other Respiratory: negative: Cough, Dry, Shortness of Breath, Hemoptysis, SOB with Excertion, Pleuritic Pain, Sputum, Wheezing Cardiovascular: negative: chest pain, palpitations, orthopnea, paroxysmal nocturnal dyspnea, edema, light headedness, other Gastrointestinal: negative: Nausea, Vomiting, Abdominal Pain, Diarrhea, Constipation, Melena, Hematochezia, Other Genitourinary: negative: Dysuria, Frequency, Incontinence, Hematuria, Retention , Other Musculoskeletal: negative: Neck Pain, Shoulder Pain, Arm Pain, Back Pain, Hand Pain, Leg Pain, Foot Pain, Other - Medications/Allergies Allergies/Adverse Reactions: Allergies Allergy/AdvReac Type Severity Reaction Status Date / Time aspirin AdvReac Intermediate Nausea Verified 05/01/18 22:57 Medications: Current Medications Acetaminophen (Tylenol) 650 mg PO Q4H PRN PRN Reason: Headache/Fever or Pain Hydrocodone Bitart/Acetaminophen ([place] 5/325) 1 tab PO Q4H PRN PRN Reason: Moderate Pain (4-6) Al Hydroxide/Mg Hydroxide (Maalox) 30 ml PO Q6H PRN PRN Reason: Heartburn or Indigestion Artificial Tears (Tears Naturale) 0 drop EA EYE PRN PRN PRN Reason: Dry Eyes Atorvastatin Calcium (Lipitor) 20 mg PO HS [facility] Last Admin: 05/19/18 19:46 Dose: 20 mg Dextrose/Water (Dextrose 50%) 25 gm SLOW IVP PRN PRN PRN Reason: Hypoglycemia Diltiazem HCl (Cardizem Sr) 60 mg PO 0300,0900,1500,2100 [facility] Last Admin: 05/20/18 09:48 Dose: 60 mg Enoxaparin Sodium (Lovenox) 80 mg SC 0900,2099 [facility] Last Admin: 05/20/18 09:32 Dose: Not Given Ferrous Sulfate (Feosol) 325 mg PO QA-[facility] Last Admin: 05/20/18 09:09 Dose: 325 mg Glucagon (Glucagon) 1 mg IM PRN PRN PRN Reason: Hypoglycemia Guaifenesin (Robitussin Sf) 200 mg PO Q4H PRN PRN Reason: Cough Diltiazem HCl 125 mg/ Sodium (Chloride) 125 mls @ 2.5 mls/hr IVPB INF [facility]; Protocol Last Admin: 05/20/18 09:12 Dose: 125 mls Dextrose/Water (D5w) 1,000 mls @ 0 mls/hr IV .Q0M PRN PRN Reason: Hypoglycemia Ferric Sodium Gluconate Complex 250 mg/ Sodium Chloride 270 mls @ 129.808 mls/ hr IVPB ONE [facility] Stop: 05/20/18 12:00 Last Admin: 05/20/18 08:04 Dose: 270 mls Insulin Human Lispro (Humalog) 0 units SC .MODERATE SLIDING SC PRN PRN Reason: Moderate Correctional Scale Insulin Human Lispro (Humalog) 0 units SC .BEDTIME SLIDING SC PRN PRN Reason: Bedtime Correctional Scale Last Admin: 05/19/18 22:07 Dose: 2 unit Labetalol HCl (Normodyne) 20 mg SLOW IVP Q4H PRN PRN Reason: Systolic BP > 180 Loperamide HCl (Imodium) 2 mg PO PRN PRN PRN Reason: Diarrhea/Loose Stools Loratadine (Claritin) 10 mg PO DAILYPRN PRN PRN Reason: Sinus Symptoms Magnesium Hydroxide (Milk Of Magnesium) 30 ml PO DAILYPRN PRN PRN Reason: Constipation Mineral Oil/White Petrolatum (Eucerin Cream) 0 gm TOP BIDPRN PRN PRN Reason: Dry Skin Ondansetron HCl (Zofran Odt) 4 mg PO Q6H PRN PRN Reason: Nausea/Vomiting Ondansetron HCl (Zofran) 4 mg IVP Q6H PRN PRN Reason: Nausea/Vomiting Pantoprazole Sodium (Protonix) 40 mg PO BID [facility] Last Admin: 05/20/18 09:09 Dose: 40 mg Phenol (Chloraseptic [place] 180 Ml Bot) 0 ml PO PRN PRN PRN Reason: Sore Throat Senna (Senokot) 2 tab PO HSPRN PRN PRN Reason: Constipation Sodium Chloride ([place] Nasal [place] 0.65%) 0 ml EA NARE QIDPRN PRN PRN Reason: Nasal Congestion Sodium Chloride (Flush - Normal Saline) 10 ml IVF Q12HR [facility] Last Admin: 05/20/18 09:11 Dose: Not Given Sodium Chloride (Flush - Normal Saline) 10 ml IVF PRN PRN PRN Reason: Saline Flush Zolpidem Tartrate (Ambien) 5 mg PO HSPRN PRN PRN Reason: Insomnia
[2018-05-20] MEDS: HumaLOG 300 UNITS/3 ML VIAL SC PRN (11:00)
--- NOTE | 2018-05-20 13:01 | CON ---
DATE OF CONSULTATION: 05/20/2018 REASON FOR CONSULTATION: Atrial fibrillation. HISTORY OF PRESENT ILLNESS: Ms. Boswell is a pleasant 72-year-old woman who has seen and evaluate d by Cardiology in the past. She states over the last week she has had palpitations and shortness of breath. No chest pain or pressure or other associated symptoms present. She presented to the emerg ency room with atrial fibrillation with RVR and placed on IV Cardizem. Her rate appears to be stable . PAST MEDICAL HISTORY: Recent peptic ulcer disease and GI bleed, hyperlipidemia, diabetes mellitus, h ypertension, anemia, anxiety, depression. PAST SURGICAL HISTORY: Status post EGD showing antral ulcer requiring cauterization, hysterectomy. SOCIAL HISTORY: No current tobacco or alcohol use. ALLERGIES: None. MEDICATIONS: Include multivitamin, Flonase, losartan, Tradjenta, pravastatin, albuterol, amlodipine, metformin, Dexilant. REVIEW OF SYSTEMS: Ten-point review of systems is reviewed and as above, otherwise negative. PHYSICAL EXAMINATION: GENERAL: The patient is a pleasant female who is in no acute distress. The patient appears her stat ed age. VITAL SIGNS: Blood pressure 131/81, pulse 74, temperature 97.7. NEUROLOGIC: The patient is alert and oriented times 3 with no focal neurologic deficits. HEENT: Sclerae without icterus. Mouth has moist mucous membranes with normal pallor. NECK: No JVD. Carotid upstroke brisk. No bruits bilaterally. LUNGS: Clear to auscultation with unlabored respirations. BACK: No scoliosis or kyphosis. CARDIAC: Irregularly irregular. ABDOMEN: Soft, nontender, nondistended. No peritoneal signs present. No hepatosplenomegaly. No ab normal striae. EXTREMITIES: 2+ femoral and 2+ dorsalis pedis pulses. No cyanosis, clubbing, or edema. SKIN: No gross abnormalities. PERTINENT LABS: Hemoglobin 9.8, lowest hemoglobin dated 05/01/2018, hemoglobin 7.7, which decreased from 13.4. EKG shows atrial fibrillation with RVR. IMPRESSION: Atrial fibrillation with rapid ventricular response. RECOMMENDATIONS: At this point, we will continue IV Cardizem. We will supplement with p.o. Cardizem at 60 mg 1 p.o. q.6 hours and adjust as needed. We will decrease IV Cardizem to 2.5 mg IV at noon. We would recommend echo with Doppler. We will also check with Dr. Tang on timing of anticoagulatio n therapy given recent cauterization 2 weeks ago.
[2018-05-20] MEDS: Atorvastatin Calcium 20 MG TAB PO SCH (20:46)
[2018-05-21] MEDS: Ferrous Sulfate 325 MG TAB PO SCH (09:58)
--- NOTE | 2018-05-21 10:06 | DIS ---
PRIMARY CARE PHYSICIAN: Dr. Vaishali Huff DATE OF ADMISSION: 05/19/2018 DATE OF DISCHARGE: 05/21/2018 DISCHARGE DISPOSITION: Home. PRIMARY DISCHARGE DIAGNOSES: New onset atrial fibrillation with rapid ventricular response. SECONDARY DISCHARGE DIAGNOSES: Peptic ulcer disease, obesity with BMI 34, hypertension, dyslipidemia , diabetes type 2, normocytic normochromic anemia. PRIMARY PROCEDURE/OPERATION: None. RADIOLOGICAL INVESTIGATION: Chest x-ray was normal. CT angio was negative for PE. Echocardiography result is pending. SIGNIFICANT LABORATORY DATA: WBC 7.4, hemoglobin 9.8, platelets 393. Sodium 139, potassium 4.0, BUN 15, creatinine 0.98, calcium 9.5. Cardiac enzymes negative x3. Ferritin 10.62. TSH 3.75. DISCHARGE MEDICATIONS: Cardizem-CD 180 mg p.o. b.i.d., aspirin 81 mg p.o. daily, vitamin D 3-1000 un its p.o. daily, Dexilant 60 mg p.o. daily, Tradjenta 5 mg p.o. daily, losartan 100 mg p.o. daily, met formin 500 mg p.o. b.i.d., pravastatin 80 mg p.o. at bedtime, ferrous sulfate 325 mg p.o. daily. The patient is advised to monitor blood pressure at home and hold blood pressure medication if blood pressure is less than 110. CONTRAINDICATIONS: The patient is not given any chronic anticoagulation because the patient had rece ntly antral ulcer with visible vessel and after discussion with the Cardiology and Gastroenterology, the patient was deemed not a safe candidate for chronic anticoagulation for at least another 2 weeks, but that can be resumed after 2 weeks. INPATIENT CONSULTANTS: Dr. Meehan was consulted while in hospital. TEST RESULTS PENDING ON DISCHARGE: Echocardiography. DISCHARGE PLAN: Post hospital, the patient will follow up with Dr. Meehan and Dr. Cole as instruc lashon. HOSPITAL COURSE: A 72-year-old female who had recent admission in our hospital for symptomatic anemi a. At that time, the patient was diagnosed with NSAID induced antral ulcer and at that time, she had a visible vessel which was cauterized. Previously, she had H. pylori gastritis which was treated wi th H. pylori treatment. The patient was having some nonspecific itchiness, but she was found by prim [place] care physician with the heart rate was fast and that is why she was directed to ER. She was foun d with atrial fibrillation with rapid ventricular response. She was treated with a Cardizem drip. I nitially, we started Lovenox 1 mg per kg, but when we discussed with eyeglass frame truer and cardiolog ist we decided that this patient is not a good candidate for chronic anticoagulation for at least ano ther 2 weeks and that is why we discontinued Lovenox therapy. She was treated with a Cardizem drip a t the same time, we started as short acting Cardizem and she had a controlled heart rate. On dischar , we changed to Cardizem-CD 180 mg p.o. b.i.d. and she will follow up with Dr. Meehan in 1[facility], as well as Dr. Kelsey Pugh and patient will have decision for chronic anticoagulation as an outpat ient basis. At this point, rate is under control and patient is asymptomatic and there is no further plan as per Cardiology. I spoke with Dr. Meehan and confirmed stability for discharge and anticoagulation is not prescribed based on his recommendation. Echocardiography is pending. The patient is seen and examined at bedside today. Review of systems reviewed with her and negative. PHYSICAL EXAMINATION: VITAL SIGNS: Currently, temperature 98.5, pulse 85, respiratory rate 20, saturation 96% on room air, blood pressure 122/51, weight 187 pounds. GENERAL: The patient is currently alert, awake, no obvious acute distress. HEAD: Normocephalic, atraumatic. EYES: Pupils round, reactive to light. Extraocular muscle intact. ENT: Oropharynx within normal limits. LUNGS: Clear. CARDIAC: S1, S2 irregular. No murmur, no gallop, no rub. ABDOMEN: Soft and benign without any tenderness. EXTREMITIES: No edema. NEUROLOGIC: Nonfocal examination. The patient will be discharged home later on today once echocardiography done.
[2018-05-21] MEDS: HumaLOG 300 UNITS/3 ML VIAL SC PRN (12:12)
[2018-05-21 15:41] VITALS: BP 140/59; TEMP 98.1
== END 2018-05-21 17:05 | disposition home or self-care (01) | DRG 310 ==
LOC: ERS 12:39 → 2SE 16:26
PROVIDERS: ADMIT Internal Medicine; ATTEND Internal Medicine
DX: I48.91 Unspecified atrial fibrillation (principal); I10 Essential (primary) hypertension; E11.9 Type 2 diabetes mellitus without complications; Z79.84 Long term (current) use of oral hypoglycemic drugs; J45.20 Mild intermittent asthma, uncomplicated; E78.5 Hyperlipidemia, unspecified; E66.9 Obesity, unspecified; D64.9 Anemia, unspecified; Z68.34 Body mass index [BMI] 34.0-34.9, adult; K27.9 Peptic ulcer, site unspecified, unspecified as acute or chronic, without hemorrhage or perforation
CPT/HCPCS: 36415; 36416; 80048; 82274; 82728; 84443; 85025; 93005; 96365; 96366; A4216; J1650; J2916; J7050

== ENCOUNTER 2018-06-28 19:19 | Observation (INO) | payer MEDICARE, OTHER ==
[2018-06-28 19:59] LABS: #Basophils 0.1 thou/uL (0.0-0.2); #Eosinphils 0.3 thou/uL (0.0-0.7); #Lymphocytes 2.2 thou/uL (1.20-3.40); #Monocytes 0.6 thou/uL (0.11-0.59); %Basophils 0.8 % (0.0-1.0); %Eosinophils 3.7 % (0.0-10.0); %Lymphocytes 27.2 % (21.0-51.0); %Monocytes 7.8 % (0.0-10.0); %Neutrophils 60.6 % (42.0-75.0); Hemoglobin 12.4 g/dL (12.0-16.0); Mean Corpuscular HGB CONC 32.9 g/dL (32.0-36.0); Mean Corpuscular Hemoglobin 29.9 pg (27.0-31.0); Mean Corpuscular Volume 90.8 fL (78.0-98.0); Mean Platelet Volume 8.1 fL (7.4-10.4); Platelet Count 284 thou/uL (130-400); RBC Distribution Width 14.8 % (11.5-14.5); Red Blood Cell (RBC) Count 4.15 mill/uL (4.20-5.40); White Blood Cell (WBC) Count 8.2 thou/uL (4.8-10.8)
[2018-06-28 20:15] LABS: ALT (SGPT) 20 U/L (8-55); AST (SGOT) 18 U/L (5-34); Albumin 4.1 g/dL (3.4-4.8); Alkaline Phosphatase 87 U/L (40-150); Anion Gap 15 mmol/L (10-20); BUN (Urea Nitrogen) 26 mg/dL (9.8-20.1); Bilirubin, Total 0.3 mg/dL (0.2-1.2); CK (CPK) 55 U/L (29-168); Calc. Creatinine Clearance 0 mL/min (70-130); Calcium 9.7 mg/dL (7.8-10.44); Carbon Dioxide 19 mmol/L (23-31); Chloride 107 mmol/L (98-107); Estimated GFR-MDRD 50; Globulin 2.8 g/dL (2.4-3.5); Glucose 103 mg/dL (83-110); Protein, Total 6.9 g/dL (6.0-8.3); Sodium 137 mmol/L (136-145)
[2018-06-28 20:19] LABS: CKMB 0.6 ng/mL (0-6.6); Troponin I Less than 0.010 ng/mL (< 0.028)
--- NOTE | 2018-06-28 20:54 | RAD ---
PORTABLE CHEST: History: Chest pain. History of Afib. Comparison: 05-19-18 FINDINGS: Heart size is slightly enlarged. There are arthrosclerotic changes of the aorta. The lungs are clear of infiltrates. No signs of failure. IMPRESSION: Mild cardiomegaly. POS: [facility]
[2018-06-28] MEDS ORDERED: Nitroglycerin 2% Ointment 1 INCH/1 GM Packet ONE (20:59)
[2018-06-28] MEDS ORDERED: Ondansetron ODT 4 MG TAB SL PRN (22:43)
[2018-06-28] MEDS ORDERED: Ondansetron HCl/PF 4 MG/2 ML Vial IVP PRN (22:43)
[2018-06-28] MEDS ORDERED: Sodium Chloride 0.9% 1,000 ML IV SCH (22:43)
[2018-06-28 23:02] VITALS: BMI 34.4
[2018-06-28 23:11] LABS: Troponin I Less than 0.010 ng/mL (< 0.028)
[2018-06-29] MEDS ORDERED: HumaLOG 300 UNITS/3 ML VIAL SC PRN (00:01)
[2018-06-29] MEDS ORDERED: Dextrose 50% Abboject 50 ML SYRINGE SLOW IVP PRN (00:01)
[2018-06-29] MEDS ORDERED: Acetaminophen 325 MG TAB PO PRN (00:01)
[2018-06-29] MEDS ORDERED: Dextrose 5% in Water 1,000 ML IV PRN (00:01)
[2018-06-29] MEDS: Nitroglycerin 2% Ointment 1 INCH/1 GM Packet TOP SCH ×2 (00:45→06:16)
[2018-06-29 02:32] LABS: Troponin I Less than 0.010 ng/mL (< 0.028)
[2018-06-29 03:33] LABS: #Basophils 0.1 thou/uL (0.0-0.2); #Eosinphils 0.3 thou/uL (0.0-0.7); #Lymphocytes 1.8 thou/uL (1.20-3.40); #Monocytes 0.7 thou/uL (0.11-0.59); #Neutrophils 4.7 thou/uL (1.40-6.50); %Basophils 0.9 % (0.0-1.0); %Eosinophils 4.4 % (0.0-10.0); %Lymphocytes 23.7 % (21.0-51.0); Hemoglobin 11.3 g/dL (12.0-16.0); Mean Corpuscular HGB CONC 32.3 g/dL (32.0-36.0); Mean Corpuscular Hemoglobin 29.4 pg (27.0-31.0); Mean Corpuscular Volume 90.8 fL (78.0-98.0); Platelet Count 279 thou/uL (130-400); RBC Distribution Width 14.9 % (11.5-14.5); Red Blood Cell (RBC) Count 3.84 mill/uL (4.20-5.40); White Blood Cell (WBC) Count 7.5 thou/uL (4.8-10.8)
[2018-06-29 04:02] LABS: Anion Gap 12 mmol/L (10-20); BUN (Urea Nitrogen) 27 mg/dL (9.8-20.1); Calc. Creatinine Clearance 65 mL/min (70-130); Calcium 9.4 mg/dL (7.8-10.44); Carbon Dioxide 24 mmol/L (23-31); Chloride 107 mmol/L (98-107); Estimated GFR-MDRD 51; Glucose 180 mg/dL (83-110); Potassium 3.8 mmol/L (3.5-5.1); Sodium 139 mmol/L (136-145)
--- NOTE | 2018-06-29 06:37 | HP ---
PRIMARY CARE PHYSICIAN: Dr. Vaishali Huff TIME OF EVALUATION: 10:00 p.m. CHIEF COMPLAINT: Chest pain. HISTORY OF PRESENT ILLNESS: This a 73-year-old female patient with past medical history of atrial fi brillation, upper gastrointestinal bleeding, diabetes, hyperlipidemia, hypertension who [facility] after having chest pain that was substernal, reported as tightness with radiation to the shou lder and the left arm, with no clear triggers, no alleviating factors, the pain has been on and off a nd every time is on this for about 30 minutes. REVIEW OF SYSTEMS: CONSTITUTIONAL: No fever or chills or generalized weakness. RESPIRATORY: No cough, sputum production, shortness of breath. CARDIOVASCULAR: Chest pain as reported in HPI. No palpitations. GASTROINTESTINAL: No nausea, vomiting, diarrhea, or abdominal pain. LEGAL ENTITY CONTROLLER: No dizziness, headache or feeling lightheaded. GENITOURINARY: No burning with urination. EXTREMITIES: Bilateral leg swelling mostly on the left. PAST MEDICAL HISTORY: As mentioned in the HPI. PAST SURGICAL HISTORY: Hysterectomy. PSYCHIATRIC HISTORY: Anxiety, depression. SOCIAL HISTORY: No drugs, no alcohol. No smoking history. ALLERGIES: No known drug allergies. FAMILY HISTORY: Reviewed and noncontributory to current presentation. MEDICATIONS: Aspirin, diltiazem, iron, Tradjenta, losartan, metformin, pravastatin. PHYSICAL EXAMINATION: VITAL SIGNS: On presentation, blood pressure 196/87, heart rate is 90, respiratory rate was 20, pain was 10/10, oxygen saturation 96% on room air. GENERAL APPEARANCE: The patient is alert, oriented, no acute distress. HEENT: Eyes, normal conjunctivae. Moist oral mucosa. Anicteric. NECK: No JVD. RESPIRATORY: Bilateral air entry. No rales, no wheezes. Symmetric expansion. CARDIOVASCULAR: Normal rate, regular rhythm. No murmurs, no gallop. Bilateral leg edema. ABDOMEN: Soft, normal bowel sounds. MUSCULOSKELETAL: Baseline range of motion and strength. No tenderness. SKIN: Warm and intact. No pallor, no rash or redness. Peripheral pulses are present. NEUROLOGIC: No evidence of any focal weakness. Cranial nerves II through XII seems to be intact. PSYCHIATRIC: The patient is good mood. No anxiety, oriented. Optimal judgment. EKG was reviewed. The patient has normal sinus rhythm at the rate of 83, QT with a rate of 162, no s pecific abnormalities, diagnostic for acute ischemic event. Chest x-ray was reviewed. The patient h as mild cardiomegaly, no acute process. LABORATORY DATA: Labs were reviewed. The patient's white count is 8.2, hemoglobin 12.4, MCV 90.8, p latelet count 284. Chemistry: Sodium 137, potassium 4.0, chloride 107, carbon dioxide 19, anion gap 15, BUN 26, creatinine 1.08, GFR 50, glucose 103. LFTs were negative. Troponin was negative x3. B eta natriuretic peptide was 45. ASSESSMENT AND PLAN: The patient will be placed in the hospital for the following medical problems. 1. Chest pain due to acute coronary syndrome. The patient has a history of atrial fibrillation, javon betes, high cholesterol, hypertension. The patient has followed with Dr. Meeahn in the past, federico ent has ____ probability for a stress test, we will consult Dr. Meehan for any further recommendat ions. 2. Hyperlipidemia, reconcile home medications, low cholesterol diet is advised. 3. Uncontrolled hypertension. The patient presented with a systolic blood pressure 196, reconcile h ome medications. Adjust medications as needed, might need IV p.r.n. medication for optimal control. 4. History of atrial fibrillation. The patient was in the hospital recently, was followed by Dr. Isidro kearns. The patient is not willing to have a stress test done. She is concerned that she might go into atrial fibrillation with rapid ventricular response again. We will consult Dr. Meehan for an y further recommendations. We will reconcile home meds at this point. 5. Diabetes type 2, is controlled, reconcile medications, put the patient on sliding scale. 6. Deep venous thrombosis prophylaxis.
[2018-06-29 07:55] LABS: Bilirubin Negative (Negative); Blood, Urine Moderate (Negative); Clarity CLEAR (Clear); Glucose, Urine (Dipstick) Negative (Negative); Leukocyte Negative (Negative); Nitrite Positive (Negative); Protein, Urine (Dipstick) Negative (Neg-Trace); Specific Gravity, Urine 1.015 (1.002-1.036); Urobilinogen 0.2 mg/dL (0.2-1.0)
[2018-06-29 07:57] LABS: Bacteria/HPF 2+ HPF (None Seen); Hyaline Casts/LPF 0-3 HYALINE CAST LPF (0-3 Hyaline); RBC/HPF 0-3 HPF (0-3); Squamous Epithelial None Seen HPF (0-3)
[2018-06-29] MEDS: Ferrous Sulfate 325 MG TAB PO SCH ×2 (10:16→17:03)
[2018-06-29] MEDS: Aspirin 81 mg Enteric Coated Tablet PO SCH (10:16)
[2018-06-29] MEDS: Losartan 25 MG TAB PO SCH (10:17)
[2018-06-29] MEDS: Docusate 100 MG CAP PO SCH (10:17)
[2018-06-29] MEDS: Enoxaparin Sodium 40 MG/0.4 ML SYRINGE SC SCH ×2 (10:19→17:03)
--- NOTE | 2018-06-29 14:34 | PDOC.PN ---
- Subjective Encounter Start Date: 06/29/18 Encounter Start Time: 08:00 Subjective: Patient denies chest pain, shortness of breath. Chest tightness improved. -: Declining lovenox injection/ RAYON CONER until speaks with cardiology. Cardiology -: consult placed. Reports frequency, urgency and dysuria. - Objective Resuscitation Status: Resuscitation Status FULL:Full Resuscitation MAR Reviewed: Yes Vital Signs & Weight: Vital Signs (12 hours) Temp Pulse Resp BP Pulse Ox 06/29/18 11:49 97.9 F 71 20 134/64 96 06/29/18 08:02 97.9 F 73 16 143/65 H 95 06/29/18 04:13 97.8 F 71 16 122/60 96 Weight Weight 188 lb I&O: 06/28/18 06/29/18 06/30/18 06:59 06:59 06:59 Intake Total 240 Output Total 200 Balance 40 Result Diagrams: 06/29/18 01:47 06/29/18 01:47 Additional Labs: Accuchecks 06/29/18 06/29/18 06/28/18 11:54 04:23 22:34 POC Glucose 113 H 89 99 Radiology Reviewed by me: Yes EKG Reviewed by me: Yes Phys Exam - Physical Examination HEENT: PERRLA, sclera anicteric Neck: no nodes, no JVD, supple Respiratory: no wheezing, no rales, no rhonchi, clear to auscultation bilateral Cardiovascular: RRR, no significant murmur, no rub Gastrointestinal: soft, no distention, positive bowel sounds Suprapubic tenderness to palpation Musculoskeletal: no edema, pulses present Neurological: non-focal, normal sensation, moves all 4 limbs Lymphatic: no nodes Psychiatric: normal affect, A&O x 3 Skin: no rash, normal turgor, cap refill <2 seconds Dx/Plan (1) UTI (urinary tract infection) Status: Acute Qualifiers: Hematuria presence: with hematuria (2) Atrial fibrillation with rapid ventricular response Code(s): I48.91 - UNSPECIFIED ATRIAL FIBRILLATION Status: Resolved - Plan plan discussed w/ family, continue antibiotics, DVT proph w/lovenox Add Cefdinir 300mg BID for UTI, Check urine culture and await sensitivities -: Cardiology service consulted, recommend stress test for rule out ACS -: Further plan pending stress test and urine culture result * .
--- NOTE | 2018-06-29 17:24 | CON ---
DATE OF CONSULTATION: 06/29/2018 CARDIOLOGY CONSULTATION INDICATION FOR CONSULTATION: A 72-year-old female with a history of dyspnea on exertion and multiple risk factors of coronary artery disease. HISTORY OF PRESENT ILLNESS: This is an unfortunate 72-year-old female who has a history of diabetes, was recently seen in the hospital last month with atrial fibrillation, which converted back to sinus rhythm after she was given diltiazem. She had had GI bleeding at that time and oral anticoagulation was held. She is still yet to have a repeat EGD done in July and this has not yet been performe d. She did have ulcers and apparently these are still healing, but she has not been on anticoagulati on. She was seen in the office by Dr. Meehan in 06/11/2018, at which time she still was maintaini ng sinus rhythm. She had been sent home on p.o. diltiazem. She recently then also was told at that time that should she continue to have shortness of breath or dyspnea on exertion that she would need to undergo some type of stress testing. Over the weekend, actually starting on perhaps, she started developing more dyspnea on exertion. With just minimal exertion, she became short of breath and she presented to the hospital after she had some chest tightness. Her EKG is unremarkable for a ny acute ischemic changes. Also, the troponin I's are negative for myocardial infarction. Her hemog lobin has remained relatively stable, today is 11.3, yesterday was 12.4. Her BNP was only 45. She w as hesitant to proceed with a stress test, which was already ordered this morning until she discussed this with the body die maker and after discussion with the patient, I agree that she does need to unde rgo stress testing to rule out evidence for underlying coronary artery disease in this lady with mult iple risk factors, which include history of diabetes, hypertension and dyslipidemia. PAST MEDICAL HISTORY: Significant for the diabetes, hypertension, dyslipidemia, intermittent atrial fibrillation. She still continues to have sinus rhythm. She has had a history of GI bleeding and ul cerations. She has gastric ulcers. ALLERGIES: None. MEDICATIONS: Prior to admission included diltiazem ER 180 mg daily, iron tablets 325 mg tablets once a day, she is taking vitamin D3, Tradjenta 5 mg a day, losartan 100 mg daily, metformin 500 mg b.i.d ., pravastatin 80 mg a day, aspirin 81 mg a day and Dexilant 60 mg 1 a day for 8 weeks. FAMILY HISTORY: Noncontributory, but her mother did have hypertension and diabetes. SOCIAL HISTORY: There is no history of tobacco abuse. No significant alcohol use. She is . She has children who are alive and well. REVIEW OF SYSTEMS: A 12-point review of systems is relatively unremarkable except what is noted in t he history of present illness except for the dyspnea on exertion. She denied any new HEENT complaint s or visual changes. No GI or complaints. She does say she has some mild pink discoloration of t he urine at times. Musculoskeletal: No significant complaints also. Neurologically, no complaints of seizures or syncope. PHYSICAL EXAMINATION: GENERAL: Reveals a well-developed, well-nourished female who is in no acute distress at this time. VITAL SIGNS: Blood pressure 134/64, heart rate is 71 and regular, she is afebrile, respiratory rate is 20, O2 saturation 96%. HEENT: Shows the head to be normocephalic and atraumatic. Carotid pulses are present. There were n o bruits. There is no JVD. The thyroid is not enlarged. Oral mucosa is pink and moist. CHEST: Clear to auscultation. There are no rales, rhonchi or wheezing noted. CARDIOVASCULAR: Exam reveals a regular rate and rhythm with normal S1 and S2. There is no S3 or S4. There were no significant murmurs, heaves, thrills, bruits or rubs noted. ABDOMEN: Soft, nontender. Positive bowel sounds are present. EXTREMITIES: Showed no clubbing, cyanosis or edema. Pedal pulses are present. NEUROLOGIC: The patient appears to be fully intact. There were no abnormalities noted. IMAGING: EKG is unremarkable, shows a normal sinus rhythm with no acute changes. LABORATORY DATA: Shows a potassium of 4.0, sodium is 137, BUN was 26, creatinine of 1.08. Blood sug ar was 103. Her hemoglobin is 11.3, WBC is 7.5. IMPRESSION: 1. A 72-year-old female with dyspnea on exertion and multiple risk factors of coronary artery diseas e, which include hypertension, diabetes and hypercholesterolemia. She did have a recent stress test, which showed an ejection fraction of 55%-60% with mild diastolic dysfunction and also mild tricuspid valve regurgitation and a trivial pericardial effusion. Due to the continued dyspnea on exertion, t his may be her ischemic symptom. She will be advised to undergo stress testing to rule out evidence for underlying coronary artery disease. If there are any abnormalities found, then she will need to undergo a cardiac catheterization. Her hemoglobin does appear to be stable at this time. She has no t had any further bleeding. Hopefully, the ulcerations have healed. 2. History of atrial fibrillation. She remains in sinus rhythm at this time. We will continue the present medications with the diltiazem. 3. History of hypertension. This is also well controlled on the present medications. Further recom mendations will depend on the results of the stress test and Dr. Meehan will visit with the patien t tomorrow.
[2018-06-29] MEDS: Cefdinir 300 MG CAP PO SCH (20:47)
[2018-06-29] MEDS ORDERED: Atorvastatin Calcium 20 MG TAB PO SCH (21:00)
[2018-06-30] MEDS: Losartan 25 MG TAB PO SCH (08:29)
[2018-06-30] MEDS: Cefdinir 300 MG CAP PO SCH (08:29)
[2018-06-30] MEDS: Aspirin 81 mg Enteric Coated Tablet PO SCH (10:44)
[2018-06-30] MEDS: Ferrous Sulfate 325 MG TAB PO SCH (10:44)
[2018-06-30] MEDS: Docusate 100 MG CAP PO SCH (10:45)
[2018-06-30] MEDS: Enoxaparin Sodium 40 MG/0.4 ML SYRINGE SC SCH (10:45)
[2018-06-30] MEDS ORDERED: ADENOSINE 60 MG/20 ML VIAL ONE (11:25)
--- NOTE | 2018-06-30 11:38 | NM ---
MYOCARDIAL PERFUSION SCAN: DATE: 06/30/2018. PROVIDED CLINICAL HISTORY: Chest pain. FINDINGS: There is homogeneous distribution of the radiotracer throughout the left ventricular myocardium at helene th stress and rest. Gated data demonstrate normal myocardial wall motion and thickening with calcula lashon LEVF of 74%. TID is calculated as 1.5. IMPRESSION: Probably normal myocardial perfusion scan. No focal reversibility is seen. Elevated TID may reflect balanced ischemia but is felt unlikely. POS: [facility]
--- NOTE | 2018-06-30 11:40 | PDOC.CTH ---
<RosannanilesAnnita Knight - Last Filed: 06/30/18 11:38> Cardiology Progress Note - Subjective Patient without complaints currently. Tells me she has not having any chest pain. She reports recent trouble with high blood pressure and associated FRIED that brought her in originally. Stress test today showed no ischemia, but TID 1.5. - Objective Vital Signs Temp Pulse Resp BP Pulse Ox 06/30/18 08:14 97.7 F 72 20 197/79 H 96 06/30/18 04:00 97.6 F 74 18 132/62 96 Weight 188 lb 06/29/18 06/30/18 07/01/18 06:59 06:59 06:59 Intake Total 240 1520 Output Total 200 900 Balance 40 620 - Physical Examination General/Neuro: alert & oriented x3 Lungs: CTA Heart: RRR Abdomen: NT/ND - Telemetry Telemetry Rhythm: SR - Labs Result Diagrams: 06/29/18 01:47 06/29/18 01:47 Troponin/CKMB CK-MB (CK-2) 0.6 ng/mL (0-6.6) 06/28/18 19:48 Troponin I Less than 0.010 ng/mL (< 0.028) 06/29/18 01:47 - Assessment/Plan 1. HTN 2. FRIED 3. Paroxysmal AFib 4. history of recent GIB 5. DM-II Discussed with patient. Multiple risk factors for CAD, but given recent GIB cannot take OAC until July per GI. Repeat EGD scheduled then. Would not perform angio unless emergent given bleeding risk. Will try oral nitrates. Ok to eat today. If BP stabilizes, ok for discharge today and f/u next week in the office. <Shahid Meehan - Last Filed: 06/30/18 13:12> Cardiology Progress Note - Objective Vital Signs Temp Pulse Resp BP BP Pulse Ox 06/30/18 12:15 73 150/67 H 06/30/18 12:00 97.9 F 75 18 173/73 H 96 06/30/18 08:14 97.7 F 72 20 197/79 H 96 06/30/18 04:00 97.6 F 74 18 132/62 96 Weight 188 lb 06/29/18 06/30/18 07/01/18 06:59 06:59 06:59 Intake Total 240 1520 Output Total 200 900 Balance 40 620 - Labs Result Diagrams: 06/29/18 01:47 06/29/18 01:47 Troponin/CKMB CK-MB (CK-2) 0.6 ng/mL (0-6.6) 06/28/18 19:48 Troponin I Less than 0.010 ng/mL (< 0.028) 06/29/18 01:47 - Assessment/Plan Seen and examined. Pt doing welll. Increase in TID likely related to low ES volumes. Low ES volumes will overestimate the TID. No ischemia presnet. BP now controlled. OK for dc from CV standpoint. Plan is to fu with Annita in 1 -2 weeks
[2018-06-30 12:08] VITALS: TEMP 97.9
[2018-06-30 12:55] VITALS: BP 150/67
--- NOTE | 2018-06-30 16:12 | PDOC.EVN ---
Event Note - Event Note Event Note: hospital course amd DC plan discussed with Aruna Sherman. agree with plan
[2018-07-01] MEDS ORDERED: Losartan 25 MG TAB PO SCH (09:00)
--- NOTE | 2018-07-01 11:46 | DIS ---
DATE OF ADMISSION: 06/28/2018 DATE OF DISCHARGE: 06/30/2018 DISCHARGE DIAGNOSES: 1. Essential primary hypertension, stable. 2. History of paroxysmal atrial fibrillation, stable. 3. History of recent gastrointestinal bleed, stable. 4. Type 2 diabetes mellitus, stable. 5. Urinary tract infection, presumptive Escherichia coli, stable. CONSULTATIONS: Cardiology services, Dr. Rodriguez and Dr. Meehan. PERTINENT LABORATORY AND X-RAY FINDINGS: WBC 7.5, RBC 3.84, hemoglobin 11.3. Troponins all within n ormal limits x2. Nuclear cardiac stress test revealed probable normal myocardial perfusion scan with no focal reversibility seen; however, there was an elevated TID, which may reflect balanced ischemia ; however, this was not felt per Dr. Meehan. HOSPITAL COURSE: The patient was admitted for chest pain along with an elevated blood pressure on ad mission of . Due to her past medical history of paroxysmal atrial fibrillation, diabetes, high cholesterol along with complaints of dyspnea on exertion, the Cardiology services were consulted, wh ich included Dr. Rodriguez and Dr. Meehan. Serial troponins were found to be negative x2. The patient was then taken for nuclear medicine stress test, which did not demonstrate any ischemia at this time ; however, there was a TID of 1.5, which Dr. Meehan determined this was likely secondary to low ES volumes. Her blood pressure seemed to improve throughout the hospital course with the addition of i sosorbide, along with her home dose of diltiazem twice daily. Home dose of losartan was cut in half since the addition of isosorbide. Her symptoms of chest pain and dyspnea did in fact improve during hospital course. On admission, her urinalysis did show signs of possible UTI; therefore, she was sta rted on cefdinir 300 mg twice daily. Her urine culture did show presumptive E. coli, therefore, she remained on cefdinir and will complete full course as outpatient. Dr. Meehan recommended her foll ow up with Annita Rachel PA-C in 1-2 weeks in his office. With her recent history of gastrointestin al bleed, Dr. Meehan did not feel comfortable starting her on any sort of anticoagulation at this time as she will have followup with her public services librarian in 1 month for a repeat endoscopy to reeva luate her gastrointestinal bleed secondary to gastric ulcer. She was seen and examined at bedside pr ior to discharge and care plan was thoroughly explained to her where she verbalized her understanding of plan and discharge for 06/30/2018. DISCHARGE MEDICATIONS: 1. Cefdinir 300 mg twice daily. 2. Isosorbide 30 mg daily. 3. Losartan 50 mg daily. 4. Vitamin D3 1000 units daily. 5. Tradjenta 5 mg daily. 6. Metformin 1000 mg twice daily. 7. Pravastatin 80 mg at bedtime. 8. Aspirin 81 mg daily. 9. Dexilant 60 mg daily before food. 10. Ferrous sulfate 325 mg every morning with breakfast. 11. Docusate sodium 100 mg daily. 12. Diltiazem 180 mg twice daily. FOLLOWUP: This patient is to follow up with her PCP, Dr. Huff in 1-2 weeks along with Annita cage PA-C in 1-2 weeks. She is also to follow up with her public services librarian in 07/2018 for repeat EG D for the evaluation of her upper GI bleed. CONDITION ON DISCHARGE: Stable. ACTIVITY: As tolerated. DIET: Diabetic diet. CODE STATUS: Full code. DISPOSITION: Home on 06/30/2018.
--- NOTE | 2018-07-04 11:36 | EKG ---
Test Reason : Blood Pressure : / mmHG Vent. Rate : 083 BPM Atrial Rate : 083 BPM P-R Int : 178 ms QRS Dur : 078 ms QT Int : 394 ms P-R-T Axes : 022 016 038 degrees QTc Int : 462 ms Normal sinus rhythm Septal infarct , age undetermined Abnormal ECG Confirmed by KATHERINE FAM, KINZA ([id number]), writer editor MANN LOZANO ([id number]) on 07/04/2018 11:36:07 AM Referred By: Confirmed By:KINZA MURPHY MD
== END 2018-06-30 15:58 | disposition home or self-care (01) ==
LOC: ERS 19:19 → 2SW 21:04
PROVIDERS: ADMIT Hospitalist; ATTEND Hospitalist
DX: I24.9 Acute ischemic heart disease, unspecified (principal); R07.89 Other chest pain; N39.0 Urinary tract infection, site not specified; R31.9 Hematuria, unspecified; I10 Essential (primary) hypertension; E78.5 Hyperlipidemia, unspecified; I48.0 Paroxysmal atrial fibrillation; E11.9 Type 2 diabetes mellitus without complications; K25.4 Chronic or unspecified gastric ulcer with hemorrhage; D50.0 Iron deficiency anemia secondary to blood loss (chronic); F41.9 Anxiety disorder, unspecified; F32.9 Major depressive disorder, single episode, unspecified; E78.00 Pure hypercholesterolemia, unspecified; Z79.82 Long term (current) use of aspirin; Z79.84 Long term (current) use of oral hypoglycemic drugs; Z79.899 Other long term (current) drug therapy
CPT/HCPCS: 36415; 36416; 71045; 78452; 80048; 80053; 81003; 81015; 82553; 83880; 84484; 85025; 87077; 87086; 87186; 90471; 90662; 93005; 93017; 94760; 96372; A9500; G0008; G0378; J0153; J1650

== ENCOUNTER 2018-07-30 09:52 | Outpatient (CLI) | payer OTHER ==
--- NOTE | 2018-07-30 13:39 | MRI ---
MRI CERVICAL SPINE NONCONTRAST: DATE: 07/30/2018. HISTORY: A 72-year-old female with cervical radiculopathy, M54.12. FINDINGS: Vertebral body heights are maintained. Cervical spinal cord is normal in size and signal. No severe disk space narrowing at any level. Bilateral severe degenerative facet disease throughout all level s from C3-4 through C7-T1. The bilateral C2-3 facet joints appear to be fused. No major bone marrow signal abnormality identified. Diffusely somewhat small caliber spinal canal on a congenital basis due to developmentally short pedicles. C1-2: No high-grade central stenosis. C2-3: No central or neural foraminal stenosis. C3-4: Shallow, small central and bilateral paracentral disk-osteophyte complex abuts and minimally i ndents the ventral surface of the spinal cord. Ligamentum flavum thickening encroaches upon the post erior aspect of the spinal canal. Overall moderate to severe central spinal canal stenosis. Small b ilateral uncinate process osteophytes. Moderate right neural foraminal stenosis. No significant lef t neural foraminal stenosis. C4-5: Mild to moderate central spinal canal stenosis. Moderate right neural foraminal stenosis. No significant left neural foraminal stenosis. C5-6: Right paracentral focal small disk herniation or disk-osteophyte complex indents the right debora tral surface of the spinal cord. Overall mild to moderate central spinal canal stenosis. Moderate n eural foraminal stenosis. Mild left neural foraminal stenosis. C6-7: No significant neural foraminal stenosis. Mild central stenosis almost entirely on a developm ental basis. C7-T1: No high-grade central stenosis or high-grade neural foraminal stenosis. IMPRESSION: 1. Cervical spondylosis consisting of multilevel bilateral severe facet osteoarthrosis. 2. High-grade central spinal canal stenosis at C3-4. 3. Bilateral neural foraminal stenosis of varying degrees. POS: [facility]
== END 2018-07-30 09:53 | disposition home or self-care (01) ==
LOC: BICMRI 09:52
PROVIDERS: ATTEND Family Medicine
DX: M47.22 Other spondylosis with radiculopathy, cervical region (principal); M48.02 Spinal stenosis, cervical region; M99.81 Other biomechanical lesions of cervical region
CPT/HCPCS: 72141; 85025

== ENCOUNTER 2018-09-22 14:51 | Outpatient (CLI) | payer OTHER ==
[2018-09-22 17:00] LABS: #Basophils 0.1 thou/uL (0.0-0.2); #Eosinphils 0.3 thou/uL (0.0-0.7); #Monocytes 0.7 thou/uL (0.11-0.59); #Neutrophils 5.5 thou/uL (1.40-6.50); %Basophils 0.6 % (0.0-1.0); %Eosinophils 3.3 % (0.0-10.0); %Lymphocytes 23.2 % (21.0-51.0); %Monocytes 7.7 % (0.0-10.0); %Neutrophils 65.2 % (42.0-75.0); Hemoglobin 13.5 g/dL (12.0-16.0); Mean Corpuscular HGB CONC 33.4 g/dL (32.0-36.0); Mean Corpuscular Hemoglobin 29.6 pg (27.0-31.0); Mean Corpuscular Volume 88.8 fL (78.0-98.0); Mean Platelet Volume 9.2 fL (7.4-10.4); Platelet Count 246 thou/uL (130-400); RBC Distribution Width 15.9 % (11.5-14.5); Red Blood Cell (RBC) Count 4.56 mill/uL (4.20-5.40); White Blood Cell (WBC) Count 8.5 thou/uL (4.8-10.8)
[2018-09-22 18:15] LABS: Anion Gap 14 mmol/L (10-20); BUN (Urea Nitrogen) 22 mg/dL (9.8-20.1); Calc. Creatinine Clearance 0 mL/min (70-130); Calcium 9.8 mg/dL (7.8-10.44); Carbon Dioxide 22 mmol/L (23-31); Chloride 106 mmol/L (98-107); Estimated GFR-MDRD 56; Glucose 88 mg/dL (83-110); Potassium 4.4 mmol/L (3.5-5.1); Sodium 138 mmol/L (136-145)
== END 2018-09-22 14:52 | disposition home or self-care (01) ==
LOC: LABBT 14:51
PROVIDERS: ATTEND Internal Medicine Cardiovascular Disease
DX: Z01.812 Encounter for preprocedural laboratory examination (principal); R06.02 Shortness of breath
CPT/HCPCS: 80048; 85025

== ENCOUNTER 2018-09-28 09:52 | Day surgery (SDC) | payer OTHER ==
[2018-09-22 15:40] VITALS: BMI 33.6
[2018-09-28] MEDS ORDERED: Iopamidol 370 76% 100 ML VIAL ONE (10:01)
[2018-09-28] MEDS ORDERED: Fentanyl 100 MCG/2 ML VIAL ONE (12:50)
[2018-09-28] MEDS ORDERED: Midazolam HCl 2 mg/2 ml Vial ONE (12:50)
[2018-09-28] MEDS ORDERED: Nitroglycerin 100MG/250ML BOT 250 ML ONE (13:00)
== END 2018-09-28 17:55 | disposition home or self-care (01) ==
LOC: CCL 09:52
PROVIDERS: ATTEND Internal Medicine Cardiovascular Disease
PROC: B2111ZZ Fluoroscopy of Multiple Coronary Arteries using Low Osmolar Contrast (ICD-10-PCS; principal; 2018-09-28)
PROC: 4A023N7 Measurement of Cardiac Sampling and Pressure, Left Heart, Percutaneous Approach (ICD-10-PCS; principal; 2018-09-28)
DX: I25.10 Atherosclerotic heart disease of native coronary artery without angina pectoris (principal); E11.9 Type 2 diabetes mellitus without complications; E78.5 Hyperlipidemia, unspecified; I48.91 Unspecified atrial fibrillation; I10 Essential (primary) hypertension; Z79.01 Long term (current) use of anticoagulants; Z79.82 Long term (current) use of aspirin; Z79.84 Long term (current) use of oral hypoglycemic drugs; Z79.899 Other long term (current) drug therapy
CPT/HCPCS: 76942; 93458; 99152; C1769; J1644; J2250; J3010; Q9967

== ENCOUNTER 2021-03-23 08:12 | Outpatient (CLI) | payer MEDICARE ==
[2021-03-23] MEDS ORDERED: Magnevist 469MG/ML 20 ML VIAL ONE (10:09)
== END 2021-03-23 08:13 | disposition home or self-care (01) ==
LOC: BICMRI 08:12
PROVIDERS: ATTEND Internal Medicine Gastroenterology
DX: R10.13 Epigastric pain (principal); K76.0 Fatty (change of) liver, not elsewhere classified; N28.1 Cyst of kidney, acquired; Z90.49 Acquired absence of other specified parts of digestive tract
CPT/HCPCS: 74183; 82565; A9579

== ENCOUNTER 2023-04-16 19:00 | Outpatient (CLI) | payer BC | END 2023-04-16 19:01 | disposition home or self-care (01) | LOC: SLEEPLAB 19:00 | PROVIDERS: ATTEND Physician Assistant | DX: G47.33 Obstructive sleep apnea (adult) (pediatric) (principal); R53.83 Other fatigue; G31.84 Mild cognitive impairment of uncertain or unknown etiology; E66.9 Obesity, unspecified; I49.9 Cardiac arrhythmia, unspecified; I10 Essential (primary) hypertension; E78.5 Hyperlipidemia, unspecified; E11.9 Type 2 diabetes mellitus without complications; I48.0 Paroxysmal atrial fibrillation; I25.10 Atherosclerotic heart disease of native coronary artery without angina pectoris; G47.61 Periodic limb movement disorder; Z68.33 Body mass index [BMI] 33.0-33.9, adult | CPT/HCPCS: 95810 ==

== ENCOUNTER 2023-05-06 19:00 | Outpatient (CLI) | payer BC | END 2023-05-06 19:01 | disposition home or self-care (01) | LOC: SLEEPLAB 19:00 | PROVIDERS: ATTEND Physician Assistant | DX: G47.33 Obstructive sleep apnea (adult) (pediatric) (principal); R53.83 Other fatigue; G31.84 Mild cognitive impairment of uncertain or unknown etiology; E66.9 Obesity, unspecified; I49.9 Cardiac arrhythmia, unspecified; G47.10 Hypersomnia, unspecified; R06.83 Snoring; Z68.33 Body mass index [BMI] 33.0-33.9, adult | CPT/HCPCS: 95811 ==